=== PATIENT | female | born 1950 | race Caucasian/White ===

== ENCOUNTER 2022-01-23 12:47 | Inpatient (IN) | payer MEDICARE, OTHER ==
[~2022-01-23] VITALS: Ht 162.6 cm; Wt 113.4 kg
--- NOTE | 2022-01-23 12:48 | NUR ---
BIB FAMILY C//O L LOWER BACK PAIN AND L LEG PAIN X2 WEEKS AND ABDOMINAL PAIN X3DAYS. AMBULATORY WITH CHRISTINA, PLACED ON BED, AAOX4.
--- NOTE | 2022-01-23 13:45 | NUR ---
STATEMENT SERVICES REPRESENTATIVE AT BED SIDE
[2022-01-23 14:06] LABS: BASOPHILS % (AUTO) 0.2 % (0.0-2.0); EOSINOPHILS % (AUTO) 0.2 % (0.0-6.0); HEMATOCRIT 36 % (33-45); HEMOGLOBIN 11.7 g/dL (11.5-14.8); LYMPHOCYTES # (AUTO) 2.2 K/uL (0.8-4.8); LYMPHOCYTES % (AUTO) 12.3 % (20.0-44.0); MEAN CORPUSCULAR HGB CONC 32 g/dl (31.0-36.0); MEAN CORPUSCULAR VOLUME 81 fL (82-100); MONOCYTES # (AUTO) 1.1 K/uL (0.1-1.30); MONOCYTES % (AUTO) 6.1 % (2.0-12.0); NEUTROPHILS # (AUTO) 14.6 K/uL (1.8-8.9); NEUTROPHILS % (AUTO) 81.2 % (43.0-81.0); PLATELET COUNT (AUTO) 249 K/uL (150-450); RED BLOOD CELL COUNT(AUTO) 4.45 MIL/uL (4.0-5.2)
--- NOTE | 2022-01-23 14:07 | NUR ---
UA SENT TO LAB
[2022-01-23 14:21] LABS: POTASSIUM 4.5 mmol/L (3.5-5.1)
[2022-01-23 14:27] LABS: ALBUMIN 3.4 g/dL (3.4-5.0); BILIRUBIN,DIRECT 0.3 mg/dL (0.0-0.2); BILIRUBIN,TOTAL 1.3 mg/dL (0.2-1.0); TOTAL PROTEIN, SERUM 7.8 g/dL (6.4-8.2)
--- NOTE | 2022-01-23 14:30 | NUR ---
PATIENT TAKEN TO CT VIA JON
[2022-01-23 14:43] LABS: BILIRUBIN,URINE NEGATIVE (NEGATIVE); COLOR,URINE YELLOW (YELLOW); LEUKOCYTE ESTERASE ,URINE LARGE (NEGATIVE); NITRITE, URINE NEGATIVE (NEGATIVE); PROTEIN,URINE NEGATIVE (NEGATIVE); UGLUCOSE NEGATIVE (NEGATIVE)
[2022-01-23] MEDS ORDERED: IV NS 0.9% 1,000 ML BAG IV ONE (15:30)
[2022-01-23] MEDS ORDERED: PIPERACILLIN /TAZOBACTAM 3.375 G in IV D5W 50 ML IV ONE (15:30)
[2022-01-23 15:54] LABS: BACTERIA,URINE 2+ /HPF (None Seen); RBC,URINE 0-2 /HPF (0-2); SQUAMOUS EPITHELIAL CELL,UR 0-2 /HPF (None Seen); WBC,URINE 51-80 /HPF (0-3)
[2022-01-23] MEDS ORDERED: LOSA50TA39 PO (16:02)
[2022-01-23] MEDS ORDERED: CARV25TA2 PO (16:02)
[2022-01-23] MEDS ORDERED: ICOS1CAP PO (16:02)
[2022-01-23] MEDS ORDERED: ATOR10TA PO (16:02)
[2022-01-23] MEDS ORDERED: SPIR25TA6 PO (16:02)
[2022-01-23] MEDS ORDERED: LEVO75TA7 PO (16:02)
[2022-01-23] MEDS ORDERED: CYAN500T64 PO (16:02)
[2022-01-23] MEDS ORDERED: ASPI-1169 PO (16:02)
[2022-01-23] MEDS ORDERED: METF-442 PO (16:02)
[2022-01-23] MEDS ORDERED: FURO40TA5 PO (16:02)
[2022-01-23] MEDS ORDERED: ALEN70TA80 PO (16:03)
[2022-01-23] MEDS ORDERED: DEXTROSE 50%-WATER 50 ML DISP.SYRIN IV PRN (16:30)
[2022-01-23] MEDS ORDERED: ONDANSETRON HCL/PF 4 MG/2 ML VIAL IVP PRN (16:30)
[2022-01-23] MEDS ORDERED: ACETAMINOPHEN 325 MG TABLET PO PRN (16:30)
[2022-01-23] MEDS ORDERED: Z GUARD REMEDY 4 OZ OINT TP PRN (16:30)
[2022-01-23] MEDS ORDERED: INSULIN REGULAR, HUMAN 100 UNIT/ML 3 ML VIAL SQ PRN (16:30)
[2022-01-23] MEDS ORDERED: TEMAZEPAM 15 MG CAPSULE PO PRN (16:30)
[2022-01-23] MEDS ORDERED: MORPHINE SULFATE INJ 2 MG/ML DISP.SYRIN IV PRN (16:30)
[2022-01-23] MEDS ORDERED: LORAZEPAM INJ 2 MG/ML VIAL IV PRN (16:30)
--- NOTE | 2022-01-23 16:45 | NUR ---
SWAB FOR COVID19 SENT TO LAB
--- NOTE | 2022-01-23 18:37 | NUR ---
BED GIVEN 322-2
--- NOTE | 2022-01-23 20:08 | NUR ---
REPORT GIVEN TO DEMARCO AGU[facility] ROOM 322-1 FOR DARCI
[2022-01-23 20:20] VITALS: BP 115/58
--- NOTE | 2022-01-23 20:20 | NUR ---
ADMISSION NOTES PT ARRIVED VIA GURNEY FROM ER ACCOMPANIED BY EMT AND DAUGHTER, CHELSYE. PT ABLE TO AMBULATE TO BED. AOx4, ABLE TO MAKE NEEDS KNOWN AND [place] SPEAKER. ON RA AND TOLERATING WELL. NO SOB NOTED. NO S/SX OF RESPIRATORY DISTRESS NOTED. IV ACCESS IN L HAND #20 G RUNNING NS @ 75 ML/HR. SAFETY PRECAUTIONS IN PLACE: BED IN LOWEST, LOCKED POSITION, SIDERAILS UPx2, AND BRAKES ON. TABLE AND CALL LIGHT WITHIN REACH. WILL CONTINUE PLAN OF CARE.
[2022-01-23] MEDS: BLOOD SUGAR DIAGNOSTIC 1 EACH STRIP IN SCH (20:36)
[2022-01-23] MEDS: IV NS 0.9% 1,000 ML IV PRN (20:47)
[2022-01-23] MEDS: ENOXAPARIN SODIUM 40 MG/0.4 ML DISP.SYRIN SQ SCH (20:48)
--- NOTE | 2022-01-23 20:50 | NUR ---
RN NOTES PROVIDED DAUGHTER, DELIA, AND MOTHER WITH EDUCATION UPON DIAGNOSIS OF DIVERTICULITIS. PER DAUGHTER AND MOTHER, THEY UNDERSTAND DIAGNOSIS. DAUGHTER MADE AWARE OF HOW TO CONTACT MOTHER IN PATIENT ROOM.
[2022-01-23] MEDS ORDERED: PIPERACILLIN /TAZOBACTAM 3.375 G in IV D5W 50 ML IV SCH (21:00)
--- NOTE | 2022-01-23 21:45 | NUR ---
RN NOTES SPOKE TO DAUGHTER GINI, WHO REQUESTS TO BE ON FACESHEET PRIMARY CONTACT, AND GAVE UPDATE ON MOTHER. PER MOTHER, IT IS ACCEPTABLE TO GIVE DAUGHTER UPDATES. DTR ALSO REQUESTED RESULTS FROM CT SCAN BUT INFORMED DAUGHTER THAT IT MUST BE REQUESTED VIA MEDICAL RECORDS.
[2022-01-24] MEDS: ZOSYN IVPB 2.25 G in IV D5W 50ml IV SCH ×4 (00:08→17:03)
[2022-01-24] MEDS: BLOOD SUGAR DIAGNOSTIC 1 EACH STRIP IN SCH ×4 (00:32→17:03)
[2022-01-24 06:15] LABS: HEMATOCRIT 32 % (33-45); HEMOGLOBIN 10.8 g/dL (11.5-14.8); LYMPHOCYTES % (AUTO) 16.3 % (20.0-44.0); MEAN CORPUSCULAR HGB CONC 34 g/dl (31.0-36.0); MEAN CORPUSCULAR VOLUME 82 fL (82-100); NEUTROPHILS % (AUTO) 76.7 % (43.0-81.0); PLATELET COUNT (AUTO) 220 K/uL (150-450); RED BLOOD CELL COUNT(AUTO) 3.91 MIL/uL (4.0-5.2); WHITE BLOOD COUNT (AUTO) 12.4 K/uL (4.3-11.0)
[2022-01-24 06:16] LABS: BASOPHILS % (AUTO) 0.1 % (0.0-2.0); EOSINOPHILS % (AUTO) 0.2 % (0.0-6.0); MONOCYTES # (AUTO) 0.8 K/uL (0.1-1.30); MONOCYTES % (AUTO) 6.7 % (2.0-12.0); NEUTROPHILS # (AUTO) 9.5 K/uL (1.8-8.9)
--- NOTE | 2022-01-24 06:49 | NUR ---
RN CLOSING NOTES PT IN BED, AWAKE. AOx4, ABLE TO MAKE NEEDS KNOWN AND [place]AI[place] SPEAKER. ON RA AND TOLERATING WELL. NO SOB NOTED. NO S/SX OF RESPIRATORY DISTRESS NOTED. IV ACCESS IN L HAND #20 G RUNNING NS @ 75 ML/HR. ALL ORDERS CARRIED OUT. ALL NEEDS MET. PT KEPT CLEAN AND DRY. PT KEPT NPO THROUGHOUT SHIFT. SAFETY PRECAUTIONS IN PLACE: BED IN LOWEST, LOCKED POSITION, SIDERAILS UPx2, AND BRAKES ON. TABLE AND CALL LIGHT WITHIN REACH. WILL ENDORSE TO ONCOMING SHIFT FOR DARCI.
[2022-01-24 07:08] LABS: CALCIUM, SERUM 8.5 mg/dL (8.5-10.1); CREATININE 0.8 mg/dL (0.6-1.3); MAGNESIUM 1.9 mg/dL (1.8-2.4); PHOSPHORUS 4.3 mg/dL (2.5-4.9); POTASSIUM 4.3 mmol/L (3.5-5.1)
--- NOTE | 2022-01-24 07:45 | NUR ---
RN OPENING NOTE PATIENT AWAKE IN BED RESTING. A/O X 4. NO PAIN NOTED AT THIS TIME. ON ROOM AIR, NO DISTRESS OR SHORTNESS OF BREATH NOTED. IV ACCESS L HAND #20G, INTACT, PATENT AND FLUSHING WELL. FALL AND SAFETY MEASURES IN PLACE, BED ALARM ON, BED IN LOW AND LOCK POSITION, CALL LIGHT AND TABLE WITHIN EASY REACH, SIDE RAILS UP X2. WILL CONTINUE TO MONITOR.
[2022-01-24 08:25] VITALS: BP 105/59
[2022-01-24] MEDS: PANTOPRAZOLE 40 MG VIAL IV SCH (09:22)
[2022-01-24 16:03] VITALS: BP 146/79
--- NOTE | 2022-01-24 19:01 | NUR ---
RN CLOSING NOTE PATIENT AWAKE IN BED RESTING. A/O X 4. NO PAIN NOTED AT THIS TIME. ON ROOM AIR, NO DISTRESS OR SHORTNESS OF BREATH NOTED. IV ACCESS R HAND #20G, INTACT, PATENT AND FLUSHING WELL. SCHEDULE MEDICATIONS ADMINISTERED. FALL AND SAFETY MEASURES IN PLACE, BED ALARM ON, BED IN LOW AND LOCK POSITION, CALL LIGHT AND TABLE WITHIN EASY REACH, SIDE RAILS UP X2. WILL ENDORSE TO SATELLITE COMMUNICATIONS OPERATOR.
--- NOTE | 2022-01-24 19:30 | NUR ---
MS RN OPENING NOTES RECEIVED PATIENT RESTING IN BED; AWAKE, ALERT AND ORIENTED X4. LITHU[place]IAN SPEAKING, UNDERSTANDS LATVI[place]. BREATHING EVEN AND UNLABORED. ON ROOM AIR; WELL TOLERATED. NO SOB NOTED. IN NO ACUTE DISTRESS. DENIES ANY PAIN OR DISCOMFORT AT THIS TIME. WITH IV ACCESS ON RIGHT HAND 22G; PATENT AND INTACT INFUSING WITH NS 1L REGULATED @ 75ML/HR; FLUSHES WELL. NO INFILTRATION NOTED. ABLE TO MAKE NEEDS KNOWN. FALL AND SAFETY MEASURES IMPLEMENTED: CALL LIGHT AND TABLE WITHIN EASY REACH, SIDE RAILS UP X2, BED IN LOWEST LOCKED POSITION. WILL CONTINUE TO MONITOR.
[2022-01-24 20:00] VITALS: BP 100/55
[2022-01-24] MEDS: ENOXAPARIN SODIUM 40 MG/0.4 ML DISP.SYRIN SQ SCH (20:33)
--- NOTE | 2022-01-25 00:49 | NUR ---
MS RN NOTE BS CHECKED WITH RESULT OF 91 MG/DL; NO INSULIN COVERAGE GIVEN
[2022-01-25] MEDS: BLOOD SUGAR DIAGNOSTIC 1 EACH STRIP IN SCH ×3 (00:55→12:18)
[2022-01-25] MEDS: ZOSYN IVPB 2.25 G in IV D5W 50ml IV SCH ×3 (00:59→12:37)
--- NOTE | 2022-01-25 06:08 | NUR ---
MS RN NOTE BS CHECKED WITH RESULT OF 96 MG/DL; NO INSULIN COVERAGE GIVEN
[2022-01-25] MEDS: IV NS 0.9% 1,000 ML IV PRN (06:22)
--- NOTE | 2022-01-25 06:55 | NUR ---
MS RN CLOSING NOTES PATIENT REMAINS IN BED; AWAKE, A/O X4. STABLE ON ROOM AIR. NO S/SX OF RESPIRATORY DISTRESS. NO C/O PAIN OR DISCOMFORT AT THIS TIME. IV ACCESS ON RIGHT HAND 22G; PATENT AND INTACT INFUSING WITH NS 1L REGULATED @ 75ML/HR; FLUSHES WELL. NO S/SX OF INFILTRATION. FALL AND SAFETY MEASURES MAINTAINED: BED IN LOWEST LOCKED POSITION, SIDE RAILS UP X2, CALL LIGHT AND TABLE WITHIN REACH. ENDORSED TO MORNING SHIFT FOR CONTINUITY OF CARE
--- NOTE | 2022-01-25 07:25 | NUR ---
MS RN OPENING NOTES RECEIVED PATIENT IN BED, AWAKE, A/O X4. STABLE ON ROOM AIR. NO S/SX OF RESPIRATORY DISTRESS NOTED. NO C/O PAIN OR DISCOMFORT AT THIS TIME. RIGHT HAND G#22 INTACT AND PATENT WITH NS 1L RUNNING @ 75ML/HR, TOLERATING WELL. SAFETY PRECAUTIONS IN PLACE. WILL CONTINUE TO MONITOR PATIENT
[2022-01-25 07:30] LABS: BASOPHILS % (AUTO) 0.4 % (0.0-2.0); EOSINOPHILS % (AUTO) 0.8 % (0.0-6.0); HEMATOCRIT 32 % (33-45); HEMOGLOBIN 10.7 g/dL (11.5-14.8); LYMPHOCYTES # (AUTO) 2.2 K/uL (0.8-4.8); LYMPHOCYTES % (AUTO) 28.9 % (20.0-44.0); MEAN CORPUSCULAR HGB CONC 33 g/dl (31.0-36.0); MEAN CORPUSCULAR VOLUME 82 fL (82-100); MONOCYTES # (AUTO) 0.5 K/uL (0.1-1.30); MONOCYTES % (AUTO) 6.5 % (2.0-12.0); NEUTROPHILS # (AUTO) 4.9 K/uL (1.8-8.9); NEUTROPHILS % (AUTO) 63.4 % (43.0-81.0); PLATELET COUNT (AUTO) 233 K/uL (150-450); RED BLOOD CELL COUNT(AUTO) 3.93 MIL/uL (4.0-5.2); WHITE BLOOD COUNT (AUTO) 7.7 K/uL (4.3-11.0)
[2022-01-25 07:55] LABS: CALCIUM, SERUM 8.2 mg/dL (8.5-10.1); CREATININE 0.8 mg/dL (0.6-1.3)
[2022-01-25] MEDS: PANTOPRAZOLE 40 MG VIAL IV SCH (08:17)
[2022-01-25] MEDS ORDERED: LEVO500T90 PO (09:45)
[2022-01-25 10:59] VITALS: BP 148/55
--- NOTE | 2022-01-25 16:20 | NUR ---
PLANOGRAMMER NOTES PATIENT MEDICALLY STABLE FOR DISCHARGE. VSS. EXIT CARE PACKET PROVIDED TO PATIENT. PATIENT DISCHARGE INSTRUCTIONS PROVIDED AND PATIENT VERBALIZED UNDERSTANDING. SKIN CLEAR AND INTACT. ALL BELONGINGS ACCOUNTED FOR AND DOCUMENTS SIGNED. IV ACCESS REMOVED AND ID BAND REMOVED. PATIENT LEFT HOSPITAL ACCOMPANIED BY DAUGHTER IN PRIVATE CAR.
[2022-01-25 16:25] VITALS: BP 124/71
== END 2022-01-25 16:30 | disposition home or self-care (01) | DRG 391 ==
LOC: ER 13:00 → MED 19:45
PROVIDERS: ADMIT Nurse Practitioner Acute Care; ATTEND Internal Medicine
DX: K57.32 Diverticulitis of large intestine without perforation or abscess without bleeding (principal); N17.0 Acute kidney failure with tubular necrosis; E87.1 Hypo-osmolality and hyponatremia; N39.0 Urinary tract infection, site not specified; Z68.43 Body mass index [BMI] 50.0-59.9, adult; E66.01 Morbid (severe) obesity due to excess calories; I10 Essential (primary) hypertension; E78.5 Hyperlipidemia, unspecified; E11.9 Type 2 diabetes mellitus without complications; Z79.83 Long term (current) use of bisphosphonates; Z79.82 Long term (current) use of aspirin; Z79.899 Other long term (current) drug therapy; B96.89 Other specified bacterial agents as the cause of diseases classified elsewhere; E03.9 Hypothyroidism, unspecified; E86.1 Hypovolemia; M81.0 Age-related osteoporosis without current pathological fracture; Z98.890 Other specified postprocedural states; D25.9 Leiomyoma of uterus, unspecified; D35.02 Benign neoplasm of left adrenal gland; M41.9 Scoliosis, unspecified; M51.36 Other intervertebral disc degeneration, lumbar region
CPT/HCPCS: 36415; 72131-TC; 80048-TC; 80076-TC; 81001; 82962-TC; 83605-TC; 83690-TC; 83735-TC; 84100-TC; 85025-TC; 87040-TC; 87081-TC; 87086-TC; 87186-TC; C9113; C9803; G0378; J1650; J1815; J2543; J7030; J7060